=== PATIENT | female | born 1980 | race Caucasian/White ===

== ENCOUNTER → 2018-11-25 | Outpatient (CLI) | payer OTHER ==
--- NOTE | 2018-11-25 14:36 | REP ---
RIGHT KNEE, FIVE VIEWS: HISTORY: Posterior pain. There is no acute fracture or dislocation. The joint spaces are normal in appearance. IMPRESSION: There is no acute fracture or dislocation. Electronically Signed by Arturo Corea MD 11/25/2018 02:47 P
== END ==
LOC: M LRY 13:37
PROVIDERS: ATTEND Nurse Practitioner Family
DX: M25.561 Pain in right knee (principal)